=== PATIENT | male | born 1995 | race Caucasian/White ===

== ENCOUNTER 2018-05-09 12:59 | Outpatient (CLI) | payer BC ==
[~2018-05-09 12:59] MED LIST: Sodium Chloride 0.9% 15 ML NEB ONE
--- NOTE | 2018-05-09 18:48 | HP ---
DATE OF SERVICE: 05/09/2018 HISTORY OF PRESENT ILLNESS: Mr. 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 The patient states that approximately 2 weeks ago, he noticed t rauma to the dorsum of his right fifth toe from his running shoe. 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 He states that 2 days later, he noted pain of his right fifth toe while walki ng. He states that he was seen at [facility] and treated for cellulitis of the righ t fifth toe. He states that he was given an antibiotic injection and placed on a course of p.o. Bact rim. He states that because of a worsening in the appearance of his wound, he presented again to [facility] 2 days later and at this time underwent incision and drainage. He states th at hematoma was evacuated at the time of incision and drainage. The patient states that 2 days ago, the skin of the right fifth toe became macerated when his dressing became wet from the rain. The pat yaya was referred to the Wound Center by the [facility] [facility]. PAST MEDICAL HISTORY: Negative for any chronic medical conditions. PAST SURGICAL HISTORY: Negative. MEDICATIONS: 1. Bactrim. 2. Zyrtec. 3. Multivitamin. ALLERGIES: No known diagnosed allergies. SOCIAL HISTORY: Negative for tobacco or ETOH use. FAMILY HISTORY: Negative for diabetes mellitus or coronary artery disease. PHYSICAL EXAMINATION: VITAL SIGNS: Temperature 98.1, pulse 51, respirations 20, blood pressure 123/58. GENERAL: A 22-year-old gentleman sitting on chair in examination room in no acute distress. HEENT: Normocephalic, atraumatic. NECK: No nuchal rigidity. CHEST: Clear to auscultation. CARDIOVASCULAR: Regular rate and rhythm. ABDOMEN: Soft. EXTREMITIES: A wound over the dorsum of the right fifth toe in the region of the nail bed is present . The dimensions of the wound are approximately 1.0 x 1.6 cm. Granulation tissue is present within the wound margins. Necrotic and nonviable tissue present within the wound margins was debrided with an excisional full-thickness debridement with the use of a curette and scissors. No purulent drainag e is associated with the wound. No erythema of the skin surrounding the wound is present. No macera tion of the skin of the periwound is noted. A dorsalis pedis pulse is palpable on the right. No sig nificant edema of the right foot is present on exam today. NEUROLOGIC: Grossly nonfocal. ASSESSMENT AND PLAN: Wound of dorsum of right fifth toe in the region of the nail bed as described a nanci. Dressing changes of Medihoney, 4 x 4s, Kerlix, and an Edwin bandage will be initiated today. Th donato dressing changes are to be performed on a daily basis after cleansing and irrigation. The patien t is to continue Bactrim as previously prescribed. I will see the patient again in 5 days.
== END 2018-05-09 13:00 | disposition home or self-care (01) ==
LOC: WCC 12:59
PROVIDERS: ATTEND Family Medicine
DX: S91.104D Unspecified open wound of right lesser toe(s) without damage to nail, subsequent encounter (principal)
CPT/HCPCS: 11042; A4218

== ENCOUNTER 2018-05-16 14:59 | Outpatient (CLI) | payer BC ==
[2018-05-16] MEDS ORDERED: Sodium Chloride 0.9% 15 ML NEB ONE (15:54)
--- NOTE | 2018-05-17 07:31 | PRG ---
DATE OF SERVICE: 05/16/2018 HISTORY: Mr. 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 The patient stated that approximately 2 weeks prior to his initial presentation to the Wound Center, he noted trauma to the dorsum of his right fifth toe from his running shoe. 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. He stated that 2 days later, he noted pain of his right fifth toe while walking. He stated that he was seen at [facility] [place] and treate d for cellulitis of the right fifth toe. He stated that he was given an antibiotic injection and santos rakesh on a course of p.o. Bactrim. He stated that because of a worsening in the appearance of his wou nd, he presented again to [facility] two days later and at this time underwent incis ion and drainage. He stated that hematoma was evacuated at the time of incision and drainage. The nate jorje stated that 2 days prior to his initial visit to the Wound Center, the skin of the right fifth toe became macerated when his dressing became wet from rain. The patient was referred to the Wound Center by the [employer] [facility] [employer]. After being seen in the Wound Center, th e patient was placed on dressing changes of Medihoney on a daily basis after cleansing and irrigation . The patient states he has been performing these dressing changes as prescribed. PHYSICAL EXAMINATION: VITAL SIGNS: Temperature 98.0, pulse 61, respirations 16, blood pressure 120/55. EXTREMITIES: A wound over the dorsum of the right fifth toe in the region of the nail bed is still p resent. Granulation tissue is present within the wound margins. Necrotic and nonviable tissue prese nt within the wound margins was debrided with an excisional full-thickness debridement with the use o f a curette and scissors. No purulent drainage is associated with the wound. No erythema of the ski n surrounding the wound is present. No maceration of the skin of the periwound is noted. No signifi cant edema of the right foot is present on exam today. ASSESSMENT AND PLAN: Wound of dorsum of right fifth toe in the region of the nail bed as described a nanci. Dressing changes of Medihoney, 4 x 4s and Coban are to be performed on a daily basis after mirian ansing and irrigation until the wound has healed completely. The patient states he has a followup ap pointment with the [facility] in the next few days. I will see Mr. Maharaj again as needed after his evaluation.
== END 2018-05-16 15:00 | disposition home or self-care (01) ==
LOC: WCC 14:59
PROVIDERS: ATTEND Family Medicine
DX: S91.204A Unspecified open wound of right lesser toe(s) with damage to nail, initial encounter (principal)
CPT/HCPCS: 11042; A4218